=== PATIENT | male | born 1975 | race Caucasian/White ===

== ENCOUNTER 2017-03-02 20:37 | Emergency (ER) | payer OTHER ==
[~2017-03-02] VITALS: Ht 175.3 cm; Wt 82.3 kg
[2017-03-02] MEDS ORDERED: AUGMENTIN875 MG PO (23:19)
[2017-03-02 23:44] VITALS: BP 158/87
== END 2017-03-02 23:44 | disposition home or self-care (01) ==
LOC: EME 20:37
PROC: 0HQ1XZZ Repair Face Skin, External Approach (ICD-10-PCS; principal; 2017-03-02)
DX: S01.551A Open bite of lip, initial encounter (principal); W54.0XXA Bitten by dog, initial encounter
CPT/HCPCS: 99281; 99284